=== PATIENT | female | born 1985 | race African-American/Black ===

== ENCOUNTER 2017-03-29 21:04 | Emergency (ER) | payer BC, MEDICAID ==
--- NOTE | 2017-03-30 01:46 | ER Document Report ---
ED Extremity Problem, Lower - General Chief Complaint: Leg Injury Stated Complaint: LEG INJURY Time Seen by Provider: 03/30/17 00:31 Mode of Arrival: Ambulatory Information source: Patient Notes: Patient is a 31-year-old morbidly obese black female comes emergency room complaining of sustained an injury on her right lower calf approximately 1 month ago. Patient states that over the course of a month she is heated it and iced it without much success in relieving the discomfort. He is here tonight because she was concerned that maybe she had a deep vein thrombosis and she was going to have it checked out. Patient denies any shortness of breath no chest pain. Patient does have a primary care provider outpatient. She is currently only taking phentermine for weight loss. TRAVEL OUTSIDE OF THE [place] IN LAST 30 DAYS: No - HPI Patient complains to provider of: Injury, Pain, Swelling Location: Leg Occurred: Other - 1 month ago Where: Other - Patient does not know how or when she hurt the leg. Onset/Duration: Sudden Quality of pain: Achy Severity: Moderate Pain Level: 3 Context: Direct blow Recent injury: Yes Associated symptoms: denies: Chest pain, Chills, Dizzy, Fainting, Fever, Luce a crack, Luce a pop, Hurts to breath, Painful ambulation, Rapid heart rate, Seizure, Short of breath, Sweaty, Unable to bear weight, Weak, Other Exacerbated by: Movement, Walking, Other - Touching Relieved by: Rest - Related Data Allergies/Adverse Reactions: acetaminophen [From Percocet] Allergy (Intermediate, Verified 03/29/17 21:05) meperidine HCl [From Demerol] Allergy (Intermediate, Verified 03/29/17 21:05) Generalized Itching oxycodone HCl [From Percocet] Allergy (Intermediate, Verified 03/29/17 21:05) Past Medical History - General Information source: Patient, Relative - Social History Smoking Status: Never Smoker Cigarette use (# per day): No Chew tobacco use (# tins/day): No Smoking Education Provided: No Frequency of alcohol use: None Drug Abuse: None Occupation: [employer] Lives with: Family, Spouse/Significant other Family History: Reviewed & Not Pertinent, DM - Mother, Hypertension - Mother, Other - Kidney disease on father's side Patient has suicidal ideation: No Patient has homicidal ideation: No - Past Medical History Cardiac Medical History: Denies: Hx Coronary Artery Disease, Hx Heart Attack, Hx Hypertension Pulmonary Medical History: Denies: Hx Asthma, Hx Bronchitis, Hx COPD, Hx Pneumonia Neurological Medical History: Denies: Hx Cerebrovascular Accident, Hx Seizures Renal/ Medical History: Reports: Hx Kidney Stones. Denies: Hx Ovarian Cysts, Hx Peritoneal Dialysis GI Medical History: Musculoskeltal Medical History: Reports Hx Arthritis - rheumatoid Psychiatric Medical History: Reports: Hx Depression - anxiety Infectious Medical History: Past Surgical History: Reports: Hx Section - x3, Hx Orthopedic Surgery - left foot fx repair. Denies: Hx Pacemaker - Immunizations Hx Diphtheria, Pertussis, Tetanus Vaccination: No Review of Systems - Review of Systems Constitutional: No symptoms reported EENT: No symptoms reported Cardiovascular: No symptoms reported Respiratory: No symptoms reported Gastrointestinal: No symptoms reported Genitourinary: No symptoms reported Female Genitourinary: No symptoms reported Musculoskeletal: Muscle pain Skin: No symptoms reported Hematologic/Lymphatic: No symptoms reported Neurological/Psychological: No symptoms reported -: Yes All other systems reviewed and negative Physical Exam - Vital signs Vitals: Temp Pulse Resp BP Pulse Ox 98.7 F 68 16 148/84 H 100 03/29/17 21:12 03/29/17 21:12 03/29/17 21:12 03/29/17 21:12 03/29/17 21:12 Interpretation: Hypertensive - General General appearance: Appears well, Alert - HEENT Head: Normocephalic, Atraumatic Eyes: Normal Pharynx: Normal Neck: Normal - Respiratory Respiratory status: No respiratory distress Chest status: Nontender. No: Tender, Chest mass, Ecchymosis, No pleuritic chest pain, Pain on movement, Pain with cough, Pain with deep breathing, Wounds , Accessory muscle use, Prolonged expirations, Splinting, Other Breath sounds: Normal. No: Decreased air movement, Nonproductive cough, Productive cough, Rales, Rhonchi, Stridor, Wheezing, Other Chest palpation: Normal. No: Flail segment, [place] frothy sputum, Purulent sputum , Subcutaneous emphysema, Sucking chest wound, Tender, Ecchymosis, Wounds, Other - Cardiovascular Rhythm: Regular Heart sounds: Normal auscultation Murmur: No - Extremities General upper extremity: Normal inspection, Normal ROM General lower extremity: Tender, Normal ROM, Normal strength, Normal temperature , Normal weight bearing. No: Normal inspection, Nontender, Edema, Normal color , Eliza's sign, Other Calf: Tender, Ecchymosis, Other - Examination patient's right lower extremity in the area where she relates the injury to his on the lateral right calf midway there is an area approximately 6 cm wide by about 8 cm long it is a hard type of a presentation but not indurated. There is no fluctuance to this area. Discoloration is that of a deep bruise. Mild tenderness to palpate loss of sensitivity right on top of the presenting lesion, palpation of the borders seem to also indicate that it is a very superficial hematoma the large at one time is now being reabsorbed by the body and in shrinking according to even patient's recollection.. No: Normal, Nontender, Abrasion, Deformity, Instability, Laceration, Unable to bear weight Notes: Explained to patient that the findings of this suggested just a deep bruise and a hematoma that has dried up. Not quite as hard as a presentation of myositis ossificans however it was definitely a tender area. Since patient is having no signs or symptoms of shortness of breath chest pain I elected to do a d-dimer and if the d-dimer was negative then we would not have to pursue a DVT workup. I explained to patient how this works I informed her of the possibilities and if it came back positive the type of workup that would be done as compared to negative and this is basically would she can follow with her primary possible possible physical therapy for the facial hematoma. Patient was in agreement to this course of action and was happy with the outcome. Course - Vital Signs Vital signs: Temp Pulse Resp BP Pulse Ox 98.7 F 68 16 148/84 H 100 03/29/17 21:12 03/29/17 21:12 03/29/17 21:12 03/29/17 21:12 03/29/17 21:12 - Transfer of Care Notes: 03/30/17 02:00 Given the negative finding on the d-dimer patient is going to go follow-up with her primary care provider outpatient because she seems to bruise easily. This injury goes along with her's inspection of hitting it on the edge of her nightstand over a month ago and again been superficial we do not worry about the DVT presentation. Discharge - Discharge Clinical Impression: Hematoma and contusion Disposition: HOME, SELF-CARE Instructions: Hematoma ([facility]) Additional Instructions: As we discussed this is a big bruise that over the course of time has hardened. Body will soon reabsorb it but it takes time. Continue with your moist heat as we discussed. This is something he probably should follow-up with your primary care about and figure out why you have such easy bruising tendencies. As we have assessed both legs at the same time you have some discolorations on both legs though granted not as big as the one on the right medial calf area. This does not lend itself to be in a DVT. As we discussed I did run a number on you it is called a d-dimer that was 100% normal which is indicative of having no DVT. At this time we do not need an ultrasound of this lower extremity it is just a big bruise. Forms: Elevated Blood Pressure Referrals: LINDEN BERRY, [Primary Care Provider] - Follow up as needed
[2017-03-30 02:37] VITALS: BP 136/80
== END 2017-03-30 02:25 | disposition home or self-care (01) ==
LOC: ER 21:04
DX: S80.11XA Contusion of right lower leg, initial encounter (principal); E66.01 Morbid (severe) obesity due to excess calories; X58.XXXA Exposure to other specified factors, initial encounter; Z88.6 Allergy status to analgesic agent; Z87.442 Personal history of urinary calculi
CPT/HCPCS: 36415; 85379; 99283